=== PATIENT | female | born 1995 | race Caucasian/White ===

== ENCOUNTER 2021-11-01 13:07 | Outpatient (CLI) | payer BC ==
[~2021-11-01 13:07] MED LIST: ACHD5005 PO; DOCU100C37 PO; FERR325T18 PO; IBUP-1780 PO
== END 2021-11-01 13:25 ==
LOC: SLEEP 13:07
PROVIDERS: ATTEND Otolaryngology Otolaryngology/Facial Plastic Surgery
DX: G47.33 Obstructive sleep apnea (adult) (pediatric) (principal)
CPT/HCPCS: G0399